=== PATIENT | female | born 1975 | race Hispanic/Latino ===

== ENCOUNTER 2024-12-20 19:55 | Emergency (ER) | payer OTHER ==
[~2024-12-20] VITALS: Ht 157.5 cm; Wt 71.2 kg
[2024-12-20 21:05] VITALS: TEMP 98.4
[2024-12-20 21:45] LABS: LEUKOCYTE ESTERASE ,URINE TRACE (NEGATIVE); PROTEIN,URINE DIPSTICK NEGATIVE (NEGATIVE); URINE UROBILINOGEN 0.2 mg/dL (0.2 - 1)
[2024-12-20 21:46] LABS: EPITHELIAL CELLS,URINE FEW /LPF; PREGNANCY TEST, URINE NEGATIVE (NEGATIVE); WBC,URINE (MAN) 0-5 /HPF (0-5)
[2024-12-20 21:57] LABS: BASOPHILS % 0.5 % (0.0-1.0); EOSINOPHILS % 2.6 % (0.0-6.0); LYMPHOCYTES % 27.3 % (18.0-39.1); MONOCYTES % 6.8 % (4.4-11.3); NEUTROPHILS % 62.6 % (38.7-80.0); RED CELL DISTRIBUTION WIDTH 13.2 % (11.7-14.4)
[2024-12-20 22:11] LABS: EST GLOMERULAR FILTRATION RATE 105.0 ML/MIN (>=60)
[2024-12-20] MEDS ORDERED: IOPAMIDOL 370 MG/ML 100 ML INFUS..BTL INJ ONE (22:43)
[2024-12-20 23:45] VITALS: PULSE 69; RESP 16
[2024-12-21] MEDS ORDERED: AZITHROMYCIN250 MG PO (00:42)
[2024-12-21] MEDS ORDERED: ULTRAM 50MG50 MG PO (00:42)
[2024-12-21 00:59] VITALS: BP 103/74; PULSE 75; RESP 14; O2SAT 98
== END 2024-12-21 00:58 | disposition home or self-care (01) ==
LOC: ER 20:19
DX: R07.89 Other chest pain (principal); W17.89XA Other fall from one level to another, initial encounter; Y92.89 Other specified places as the place of occurrence of the external cause; K62.5 Hemorrhage of anus and rectum; Z98.84 Bariatric surgery status
CPT/HCPCS: 36415; 71260; 74177; 80053; 81001; 81025; 85025; 99284; Q9967